=== PATIENT | female | born 1940 | race Caucasian/White ===

== ENCOUNTER 2017-09-28 14:44 | Inpatient (IN) | payer MEDICARE ==
[~2017-09-28 14:44] MED LIST: CARV3.12 PO; DILT1TAB2 PO; GUAI100S5 PO; LEVO100T5 PO; LEVO125T4 PO; MEDR4PAK PO; PRED-503 PO; SIMV10TA PO; VALS1TAB63 PO; VENTAER INH; ZITHTAB PO; ZOFR4TAB3 SL
[2017-09-28 18:37] VITALS: BP 166/74; PULSE 88; RESP 16; TEMP 97.6; O2SAT 94
[2017-09-28] MEDS ORDERED: SODIUM CHLORIDE 0.9% FLUSH 10 ML FLUSH IV FLUSH PRN (19:00)
[2017-09-28] MEDS ORDERED: ALBUTEROL SULFATE 90 MCG/ACT HFA 8 GM INHALER INH PRN (19:00)
[2017-09-28] MEDS ORDERED: MORPHINE SULFATE 2 MG/ML INJ IV PRN (19:15)
[2017-09-28 19:57] VITALS: BP 147/67; PULSE 93; RESP 18; TEMP 97.8; O2SAT 95
[2017-09-28] MEDS: D5-1/2 NS + KCL 20 MEQ INJ 1,000 ML IV SCH (20:24)
[2017-09-28] MEDS: PIPERACIL-TAZO 3.375 GM PREMIX 50 ML IV SCH (20:24)
[2017-09-28] MEDS: VALSARTAN 40 MG TAB PO SCH (20:25)
[2017-09-28] MEDS: oxyCODONE/ACETAMINOPHEN 5 MG/325 MG TAB PO PRN (20:25)
[2017-09-28] MEDS: CARVEDILOL 3.125 MG TAB PO SCH (20:25)
[2017-09-28] MEDS: SODIUM CHLORIDE 0.9% FLUSH 10 ML FLUSH IV FLUSH SCH (20:25)
[2017-09-28] MEDS ORDERED: metroNIDAZOLE 500 MG INJ 100 ML IV SCH (21:00)
--- NOTE | 2017-09-28 21:48 | HHI.HP ---
HPI Service [facility] [place] [facility] Primary Care Physician Non-Staff Admission Diagnosis Diagnoses: Chief Complaint: abdominal pain Travel History International Travel<30 Days: No Contact w/Intl Traveler <30 Da: No Traveled to Known Affected Are: No History of Present Illness 77 y/o female with a history of diverticula, irregular heart rhythm, umbilical hernia, and HTN presented to the ED with complaints of abdominal pain. She states for the last 4 days she has had crampy, 7/10, intermittent pain, transverse along her lower abdomen, with no radiation, and improved with morphine. She states she has had diverticulitis in the past but not in a few years. She denies any fevers, chills, chest pain, nausea or vomiting. 1 year ago she had an ileostomy reversal due to a twisted bowel, from this she has a umbilical hernia that does not cause her problems. She does not follow with a GI physician. Science Technician: Dr. Snyder in [place] Review of Systems Except as stated in HPI: all other systems reviewed are Neg Past Family Social History Past Medical History Diverticulitis HTN Irregular Heart beat HLD Hypothyroid Past Surgical History Ileostomy reversal 2016 Reported Medications Reported Meds & Active Scripts Active Ventolin Hfa 18 GM Inh (Albuterol Sulfate) 90 Mcg/Act Aer 2 Puff INH Q6H PRN Ventolin Hfa 18 GM Inh (Albuterol Sulfate) 90 Mcg/Act Aer 2 Puff INH Q4-6H PRN Reported Levothyroxine (Levothyroxine Sodium) 125 Mcg Tab 125 Mcg PO DAILY Carvedilol 3.125 Mg Tab 3.125 Mg PO BID Cardizem LA (Diltiazem ER 24 HR) 240 Mg Daisy 240 Mg PO DAILY Simvastatin 10 Mg Tab 10 Mg PO DAILY Valsartan 40 Mg Tab 40 Mg PO BID Allergies: Coded Allergies: INOCENCIO Inhibitors (Verified Allergy, Severe, Cough, 09/28/17) Active Ordered Medications Current Medications Medications (Trade) Dose Ordered Sig/Michelle Route Start Time Stop Time Status Last Admin (Proair Hfa Inh) 2 puff Q4HR PRN INH 09/28/17 19:00 (Coreg) 3.125 mg BID PO 09/28/17 21:00 09/28/17 20:25 (Cardizem Cd) 240 mg DAILY PO 09/29/17 09:00 (Synthroid) 125 mcg DAILY@0600 PO 09/29/17 06:00 (Diovan) 40 mg BID PO 09/28/17 21:00 09/28/17 20:25 (Pravachol) 20 mg DAILY PO 09/29/17 09:00 (NS Flush) 2 ml UNSCH PRN IV FLUSH 09/28/17 19:00 (NS Flush) 2 ml BID IV FLUSH 09/28/17 21:00 09/28/17 20:25 Piperacillin Sod/ Tazobactam Sod 50 ml @ 100 mls/hr Q6H IV 09/28/17 20:00 09/28/17 20:24 (Percocet 5-325 Mg) 1 tab Q4H PRN PO 09/28/17 19:00 09/28/17 20:25 (Morphine Inj) 2 mg Q4H PRN IV 09/28/17 19:15 Potassium Chloride/Dextrose/ Sod Cl 1,000 ml @ 100 mls/hr Q10H IV 09/28/17 18:57 09/29/17 14:56 09/28/17 20:24 Ciprofloxacin/ Dextrose 200 ml @ 200 mls/hr Q12H IV 09/29/17 04:00 Metronidazole 100 ml @ 100 mls/hr Q6H IV 09/28/17 21:00 09/28/17 20:25 Family History Mom and dad: HTN Social History Tobacco use: 4-5 cigarettes a day Alcohol use: Denies Physical Exam Vital Signs Vital Signs Date Time Temp Pulse Resp B/P (MAP) Pulse Ox O2 Delivery O2 Flow Rate FiO2 09/28/17 19:57 97.8 93 18 147/67 (93) 95 09/28/17 18:37 97.6 88 16 166/74 (104) 94 Physical Exam GENERAL: This is a well-nourished, well-developed patient, resting, just given morphine SKIN: No rashes, ecchymoses or lesions. Cool and dry. HEAD: Atraumatic. Normocephalic. No temporal or scalp tenderness. EYES: Pupils equal round and reactive. ENT: Nose without bleeding, purulent drainage or septal hematoma. Airway patent. NECK: Trachea midline. No JVD or lymphadenopathy. CARDIOVASCULAR: Regular rate and rhythm without murmurs, gallops, or rubs. RESPIRATORY: Clear to auscultation. Breath sounds equal bilaterally. No wheezes , rales, or rhonchi. GASTROINTESTINAL: Abdomen soft, lower abdomen tenderness, nondistended. umbilical hernia, soft MUSCULOSKELETAL: Extremities without clubbing, cyanosis, or edema. No calf tenderness. NEUROLOGICAL: Awake and alert.Motor and sensory grossly within normal limits. Normal speech. Caprini VTE Risk Assessment Caprini VTE Risk Assessment: No/Low Risk (score <= 1) Caprini Risk Assessment Model Point Value = 1 Point Value = 2 Point Value = 3 Point Value = 5 Age 41-60 Minor surgery BMI > 25 kg/m2 Swollen legs Varicose veins or History of unexplained or recurrent spontaneous Oral contraceptives or hormone replacement Sepsis (< 1 month) Serious lung disease, including pneumonia (< 1 month) Abnormal pulmonary function Acute myocardial infarction Congestive heart failure (< 1 month) History of inflammatory bowel disease Medical patient at bed rest Age 61-74 Arthroscopic surgery Major open surgery (> 45 min) Laparoscopic surgery (> 45 min) Malignancy Confined to bed (> 72 hours) Immobilizing plaster cast Central venous access Age >= 75 History of VTE Family history of VTE Factor V Leiden Prothrombin [id number] Lupus anticoagulant Anticardiolipin antibodies Elevated serum homocysteine Heparin-induced thrombocytopenia Other congenital or acquired thrombophilia Stroke (< 1 month) Elective arthroplasty Hip, pelvis, or leg fracture Acute spinal cord injury (< 1 month) Prophylaxis Regimen Total Risk Factor Score Risk Level Prophylaxis Regimen 0-1 Low Early ambulation 2 Moderate Order ONE of the following: *Sequential Compression Device (SCD) *Heparin 5000 units SQ BID 3-4 Higher Order ONE of the following medications: *Heparin 5000 units SQ TID *Enoxaparin/Lovenox 40 mg SQ daily (WT < 150 kg, CrCl > 30 mL/min) *Enoxaparin/Lovenox 30 mg SQ daily (WT < 150 kg, CrCl > 10-29 mL/min) *Enoxaparin/Lovenox 30 mg SQ BID (WT < 150 kg, CrCl > 30 mL/min) AND/OR *Sequential Compression Device (SCD) 5 or more Highest Order ONE of the following medications: *Heparin 5000 units SQ TID (Preferred with Epidurals) *Enoxaparin/Lovenox 40 mg SQ daily (WT < 150 kg, CrCl > 30 mL/min) *Enoxaparin/Lovenox 30 mg SQ daily (WT < 150 kg, CrCl > 10-29 mL/min) *Enoxaparin/Lovenox 30 mg SQ BID (WT < 150 kg, CrCl > 30 mL/min) AND *Sequential Compression Device (SCD) Assessment and Plan Problem List: (1) HTN (hypertension) ICD Code: I10 - Essential (primary) hypertension (2) Diverticulitis ICD Code: K57.92 - Diverticulitis of intestine, part unspecified, without perforation or abscess without bleeding (3) Hypothyroid ICD Code: E03.9 - Hypothyroidism, unspecified Assessment and Plan 77 y/o female with a history of diverticula, umbilical hernia, and HTN presented to the ED with complaints of abdominal pain. Sigmoid diverticulitis CT abdomen reviewed and shows long segment mid to distal sigmoid diverticulitis associated with diverticulosis. -Antibiotics: Zosyn IV -Consult GI, appreciate input -Pain medicine with IV morphine -NPO -Antiemetics for nausea HTN,controlled -Resume home medications, monitor vitals Hypothyroid, chronic -Resume home medications DVT prophylaxis: SCDs Discussed Condition With Patient Physician Certification 2 Midnight Certification Type: Admission for Inpatient Services Order for Inpatient Services The services are ordered in accordance with Medicare regulations or non- Medicare payer requirements, as applicable. In the case of services not specified as inpatient-only, they are appropriately provided as inpatient services in accordance with the 2-midnight benchmark. Estimated LOS (days): 2 days is the estimated time the patient will need to remain in the hospital, assuming treatment plan goals are met and no additional complications. Post-Hospital Plan: Home Sanna Florian Sep 28, 2017 21:48
[2017-09-28 23:30] VITALS: BP 135/65; PULSE 73; RESP 18; TEMP 98.2; O2SAT 95
[2017-09-29] MEDS: oxyCODONE/ACETAMINOPHEN 5 MG/325 MG TAB PO PRN (02:19)
[2017-09-29] MEDS: PIPERACIL-TAZO 3.375 GM PREMIX 50 ML IV SCH ×2 (02:19→08:53)
[2017-09-29 03:05] VITALS: BP 123/58; PULSE 77; RESP 18; TEMP 98.1; O2SAT 95
[2017-09-29] MEDS ORDERED: CIPROFLOXACIN 400 MG PREMIX 200 ML IV SCH (04:00)
[2017-09-29] MEDS: D5-1/2 NS + KCL 20 MEQ INJ 1,000 ML IV SCH ×2 (04:40→08:54)
[2017-09-29] MEDS ORDERED: LEVOTHYROXINE SODIUM 125 MCG TAB PO SCH (06:00)
[2017-09-29 07:21] VITALS: BP 153/69; PULSE 79; RESP 18; TEMP 98.2; O2SAT 95
[2017-09-29 07:55] LABS: AUTOMATED NEUTROPHIL # 8.8 TH/MM3 (1.8-7.7); BASOPHIL % 0.4 % (0.0-2.0); EOSINOPHIL # 0.2 TH/MM3 (0-0.4); EOSINOPHIL % 1.7 % (0.0-4.0); HEMATOCRIT 33.8 % (35.0-46.0); HEMOGLOBIN 11.5 GM/DL (11.6-15.3); LYMPH % 15.1 % (9.0-44.0); LYMPHOCYTE # 1.8 TH/MM3 (1.0-4.8); MEAN CORPUSCULAR HEMOGLOBIN 28.8 PG (27.0-34.0); MEAN CORPUSCULAR HGB CONC 33.8 % (32.0-36.0); MEAN PLATELET VOLUME 7.7 FL (7.0-11.0); MONO % 8.8 % (0.0-8.0); PLATELET COUNT 359 TH/MM3 (150-450); RED BLOOD COUNT 3.98 MIL/MM3 (4.00-5.30); RED CELL DISTRIBUTION WIDTH 13.9 % (11.6-17.2); WHITE BLOOD COUNT 11.9 TH/MM3 (4.0-11.0)
[2017-09-29 08:05] LABS: BICARBONATE 29.4 MEQ/L (21.0-32.0); CALCIUM 8.5 MG/DL (8.5-10.1); CREATININE 0.81 MG/DL (0.50-1.00)
[2017-09-29] MEDS: VALSARTAN 40 MG TAB PO SCH (08:52)
[2017-09-29] MEDS: CARVEDILOL 3.125 MG TAB PO SCH (08:52)
[2017-09-29] MEDS: SODIUM CHLORIDE 0.9% FLUSH 10 ML FLUSH IV FLUSH SCH (08:54)
[2017-09-29] MEDS ORDERED: PRAVASTATIN SOD 20 MG TAB PO SCH (09:00)
[2017-09-29] MEDS ORDERED: DILTIAZEM-CD 240 MG CAP ER PO SCH (09:00)
--- NOTE | 2017-09-29 10:13 | PD.CONS ---
HPI History of Present Illness This is a 77 year old lady with hx diverticulitis, colon obstruction s/p ileostomy reversal who presented to [facility] with abd pain that felt like gas pain and became severe. Onset pain was 2 days ago. Denies fevers, diarrhea, blood in stool, black tarry stool. Admits constipation currently. CT showed sigmoid diverticulitis. Her last episode diverticulitis was nearly 20 years ago. Last colonoscopy was 5-[address] Fry in [place] and findings were polyps. Never had EGD. SHe says over all her pain is improving. (Chikis Pettit) PFSH Past Medical History Diverticulitis HTN Irregular Heart beat HLD Hypothyroid Past Surgical History ileostomy Ileostomy reversal 2017 hysterectomy (Chikis Pettit) Coded Allergies: INOCENCIO Inhibitors (Verified Allergy, Severe, Cough, 09/28/17) Family History Mom and dad: HTN Social History Tobacco use: 4-5 cigarettes a day Alcohol use: Denies denies illicit drug use (Chikis Pettit) Review of Systems Constitutional: DENIES: Fever Eyes: DENIES: Blurred vision Ears, nose, mouth, throat: DENIES: Hearing loss Respiratory: DENIES: Cough Cardiovascular: DENIES: Chest pain Gastrointestinal: COMPLAINS OF: Abdominal pain, Constipation, DENIES: Black stools, Bloody stools, Diarrhea, Nausea, Vomiting Genitourinary: DENIES: Hematuria Musculoskeletal: DENIES: Joint Swelling Hematologic/lymphatic: DENIES: Bruising Neurologic: DENIES: Abnormal gait Psychiatric: DENIES: Confusion (Chikis Pettit) GI Exam Vitals I&O Vital Signs Date Time Temp Pulse Resp B/P (MAP) Pulse Ox O2 Delivery O2 Flow Rate FiO2 09/29/17 07:21 98.2 79 18 153/69 (97) 95 09/29/17 03:05 98.1 77 18 123/58 (79) 95 09/28/17 23:30 98.2 73 18 135/65 (88) 95 09/28/17 19:57 97.8 93 18 147/67 (93) 95 09/28/17 18:37 97.6 88 16 166/74 (104) 94 Laboratory Test 09/29/17 07:26 White Blood Count 11.9 TH/MM3 Red Blood Count 3.98 MIL/MM3 Hemoglobin 11.5 GM/DL Hematocrit 33.8 % Mean Corpuscular Volume 85.0 FL Mean Corpuscular Hemoglobin 28.8 PG Mean Corpuscular Hemoglobin Concent 33.8 % Red Cell Distribution Width 13.9 % Platelet Count 359 TH/MM3 Mean Platelet Volume 7.7 FL Neutrophils (%) (Auto) 74.0 % Lymphocytes (%) (Auto) 15.1 % Monocytes (%) (Auto) 8.8 % Eosinophils (%) (Auto) 1.7 % Basophils (%) (Auto) 0.4 % Neutrophils # (Auto) 8.8 TH/MM3 Lymphocytes # (Auto) 1.8 TH/MM3 Monocytes # (Auto) 1.0 TH/MM3 Eosinophils # (Auto) 0.2 TH/MM3 Basophils # (Auto) 0.0 TH/MM3 CBC Comment DIFF FINAL Differential Comment Blood Urea Nitrogen 9 MG/DL Creatinine 0.81 MG/DL Random Glucose 128 MG/DL Calcium Level 8.5 MG/DL Sodium Level 139 MEQ/L Potassium Level 3.9 MEQ/L Chloride Level 104 MEQ/L Carbon Dioxide Level 29.4 MEQ/L Anion Gap 6 MEQ/L Estimat Glomerular Filtration Rate 68 ML/MIN Physical Examination HEENT: PERRL; normocephalic; atraumatic; no jaundice. CHEST: wheezes CARDIAC: RRR ABDOMEN: Soft, nondistended, mild RLQ TTP; no hepatosplenomegaly; bowel sounds are present in all four quadrants. EXTREMITIES: No clubbing, cyanosis, or edema. SKIN: Normal; no rash; no jaundice. INSURANCE ACCOUNT EXECUTIVE: No focal deficits; alert and oriented times three. (Chikis Pettit [facility]) Assessment and Plan Plan ASSESSMENT - diverticulitis - abd pain 2-3 days, sigmoid diverticulitis on CT. hx diverticulitis last episode 20y ago. Last colonoscopy 5-10 y ago and polyps found. hx ileostomy for colon obstruction and ileostomy reversal. pt eager to go home - leukocytosis - mild, likely r/t above PLAN - full liquids, advance as tolerated - will need to have BM before d/c - continue zosyn - supportive care - poss d/c tomorrow if pain improving, tolerating diet and + BM - further recs to follow pt seen by myself and Dr Lockwood and this note is written on his behalf. (Chikis Pettit) Plan Patient was seen and examined, agree with above-noted, patient feeling much better today less abdominal pain and no nausea or vomiting, she would like to go home if possible, I told her if she tolerates liquid diet and switch to by mouth antibiotics and an pass the bowel movement then that should be considered for discharge, this was incoordination with her hospitalist physician (Katie Lockwood MD) Chikis Pettit Sep 29, 2017 10:13 Katie Lockwood MD Sep 29, 2017 15:18
[2017-09-29 11:29] VITALS: BP 162/76; PULSE 78; RESP 18; TEMP 99; O2SAT 93
[2017-09-29] MEDS ORDERED: MAGNESIUM CITRATE SOLN 300 ML BTL PO ONE (12:30)
[2017-09-29] MEDS ORDERED: LACTULOSE SYRUP 20 GM/30 ML CUP PO PRN (14:00)
[2017-09-29] MEDS ORDERED: NALOXONE HCL 0.4 MG/ML AMP IV PUSH PRN (14:00)
[2017-09-29] MEDS ORDERED: MAGNESIUM HYDROXIDE SUSP 30 ML CUP PO PRN (14:00)
[2017-09-29] MEDS ORDERED: SENNOSIDES 8.6 MG TAB PO PRN (14:00)
[2017-09-29] MEDS ORDERED: ONDANSETRON HCL 4 MG/2 ML VIAL IVP PRN (14:00)
[2017-09-29] MEDS ORDERED: BISACODYL 10 MG SUPP RECTAL PRN (14:00)
[2017-09-29] MEDS ORDERED: AMOX875T2 PO (14:23)
--- NOTE | 2017-09-29 14:57 | HHI.PR ---
Subjective Remarks Follow up for diverticulitis. Patient currently reports no abdominal pain. No fever, chills. She wants to eat. Objective Vitals Vital Signs Date Time Temp Pulse Resp B/P (MAP) Pulse Ox O2 Delivery O2 Flow Rate FiO2 09/29/17 11:29 99.0 78 18 162/76 (104) 93 09/29/17 07:21 98.2 79 18 153/69 (97) 95 09/29/17 03:05 98.1 77 18 123/58 (79) 95 09/28/17 23:30 98.2 73 18 135/65 (88) 95 09/28/17 19:57 97.8 93 18 147/67 (93) 95 09/28/17 18:37 97.6 88 16 166/74 (104) 94 Result Diagram: 09/29/1772509/29/17 07 Objective Remarks GENERAL: Alert, Oriented x 3, NAD. SKIN: Warm and dry. HEAD: Normocephalic. EYES: No scleral icterus. No injection or drainage. NECK: Supple, trachea midline. No JVD or lymphadenopathy. CARDIOVASCULAR: Regular rate and rhythm without murmurs, gallops, or rubs. RESPIRATORY: Breath sounds equal bilaterally. No accessory muscle use. GASTROINTESTINAL: Abdomen soft, non-tender, nondistended. MUSCULOSKELETAL: No cyanosis, or edema. BACK: Nontender without obvious deformity. No CVA tenderness. Procedures None. A/P Problem List: (1) Diverticulitis ICD Code: K57.92 - Diverticulitis of intestine, part unspecified, without perforation or abscess without bleeding (2) HTN (hypertension) ICD Code: I10 - Essential (primary) hypertension (3) Hypothyroid ICD Code: E03.9 - Hypothyroidism, unspecified Assessment and Plan 77 y/o female with a history of diverticula, irregular heart rhythm, umbilical hernia, and HTN presented to the ED with complaints of abdominal pain. CT abd shos mid to distal sigmoid diverticulitis. Patient was started on Zosyn. - Acute diverticulitis - Was on Zosyn. Currently, patient complains of no abd pain - GI evaluated patient and recommended Mag Citrate and a diet. - When she took Mag citrate, she had some nausea which later improved. She tolerated diet some. - Pt and daughter insisted that patient feels well and would like to go home. - We discharged her on Augmentin for 10 days - however, when all symptoms are resolved, Abx can be discontinued. - Hypertension - Hypothyroidism - Continue home meds. Full code. Discharge patient to home Condition on discharge: Improved Regular Diet as tolerated Ad Hilda activity Rx written: - Augmentin 875 Q12hrs X 10 days - can be stopped when all symptoms are resolved. Follow-up with primary care physician PRN and GI in two weeks for possible eval and colonoscopy. Freddy Eagle DO Sep 29, 2017 14:57
[2017-09-29 15:23] VITALS: BP 129/60; PULSE 81; RESP 18; TEMP 98.4; O2SAT 93
[2017-09-29] MEDS ORDERED: AMOXICILLIN/CLAVULANATE K 875 MG TAB PO SCH (21:00)
== END 2017-09-29 16:46 | disposition home or self-care (01) | DRG 392 ==
LOC: NEDDLT 17:26 → NEPHCDU 17:36 → OBSVTOIN 18:59
PROVIDERS: ADMIT Hospitalist; ATTEND Hospitalist
DX: K57.32 Diverticulitis of large intestine without perforation or abscess without bleeding (principal); I10 Essential (primary) hypertension; K42.9 Umbilical hernia without obstruction or gangrene; E03.9 Hypothyroidism, unspecified; F17.210 Nicotine dependence, cigarettes, uncomplicated; E78.5 Hyperlipidemia, unspecified
CPT/HCPCS: 74177; 80048; 80053; 81001; 83690; 85025; 96365; 96375; J0744; J2405; J2543; J3480; Q9967